=== PATIENT | male | born 1990 | race African-American/Black ===

== ENCOUNTER 2016-11-12 22:48 | Emergency (ER) | payer OTHER ==
[~2016-11-12] VITALS: Ht 172.7 cm; Wt 70.3 kg
[~2016-11-12 22:48] MED LIST: HYDROCHLOROTH12.5 M1 PO; IBUPROFEN 600600 M1 PO; NORVASC5 MG PO; ONDANSETRON HCL4 M2 PO; PRINIVIL10 MG PO; VENTOLIN HFA 1818 GM INH
[2016-11-13] MEDS ORDERED: COMPAZINE10 MG PO (00:52)
[2016-11-13 01:15] VITALS: BP 127/70
== END 2016-11-13 01:33 | disposition home or self-care (01) ==
LOC: ER 22:48
DX: R51 Headache (principal); I10 Essential (primary) hypertension; J45.909 Unspecified asthma, uncomplicated; Z88.8 Allergy status to other drugs, medicaments and biological substances

== ENCOUNTER 2017-01-17 23:21 | Emergency (ER) | payer OTHER ==
[~2017-01-17] VITALS: Ht 170.2 cm; Wt 68.0 kg
--- NOTE | ~2017-01-17 | EKG ---
[place] [address] [facility] [place] [address] ELECTROCARDIOGRAM REPORT [facility]: DEP YAMILET Hunter#: [id number] Admission: 01/17/17 Attend Phys: Discharge: 01/18/17 Date of : 86 Report #: [id number] THIS REPORT FOR: //name// [facility] ED Test Date: 2017-01-17 Test Time: 23:57:51 Pat Name: WOLF DARBY Department: Room: Gender: M [employer]: [id number] : 1990 Requested By: Subhash Carreon Order Number: [id number] MD: Jett Livingston Measurements Intervals [place] Rate: 50 P: 17 NH: 125 QRS: 24 QRSD: 109 T: 33 QT: 422 QTc: 385 Interpretive Statements Sinus rhythm ST elev, probable normal early repol pattern No previous ECG available for comparison Electronically Signed On 01-18-2017 17:13:22 CDT by Jett Livingston [email or web address] <ELECTRONICALLY SIGNED> By: Jett Livingston MD, [facility] 01/18/17 1713 D: [id number] Jett Livingston MD, FACC /EPI
[~2017-01-17 23:21] MED LIST changes: +COMPAZINE10 MG PO
[2017-01-17] MEDS ORDERED: FLUTICASONE PRO16 GM NS (23:25)
[2017-01-18 00:07] LABS: HEMATOCRIT 38.4 % (42.0-52.0); HEMOGLOBIN 13.2 gm/dL (14.0-18.0); MCH 31.8 pg (26.0-34.0); MCHC 34.3 g/dL (28.0-37.0); MCV 92.7 fL (80.0-100.0); RBC 4.14 mil/uL (4.50-6.00); RDW 12.9 % (10.5-14.5); WBC 6.7 thou/uL (4.0-11.0)
[2017-01-18 00:42] LABS: URINE BILIRUBIN NEGATIVE (Negative); URINE BLOOD NEGATIVE (Negative); URINE COLOR YELLOW; URINE GLUCOSE-RANDOM* NEGATIVE (Negative); URINE KETONES NEGATIVE (Negative); URINE LEUKOCYTES-REFLEX NEGATIVE (Negative); URINE PROTEIN (DIPSTICK) NEGATIVE (Negative); URINE SPECIFIC GRAVITY 1.025 (1.003-1.035); URINE UROBILINOGEN 0.2 E.U./dl (0.2-1.0)
[2017-01-18 01:21] LABS: CALCIUM 8.9 mg/dL (8.5-10.1); CREATININE 1.2 mg/dL (0.7-1.3); POTASSIUM 3.9 mmol/L (3.5-5.1)
[2017-01-18 01:24] LABS: ALBUMIN 3.5 g/dL (3.4-5.0)
[2017-01-18 01:28] LABS: TOTAL BILIRUBIN 0.3 mg/dL (<0.1-1.0); TOTAL PROTEIN 6.6 g/dL (6.4-8.2)
[2017-01-18 01:54] VITALS: BP 112/74
== END 2017-01-18 02:01 | disposition home or self-care (01) ==
LOC: ER 23:21
PROVIDERS: Emergency Medicine
DX: R60.0 Localized edema (principal); I10 Essential (primary) hypertension; J45.909 Unspecified asthma, uncomplicated; Z88.8 Allergy status to other drugs, medicaments and biological substances

== ENCOUNTER 2017-02-22 19:18 | Emergency (ER) | payer OTHER ==
[~2017-02-22] VITALS: Ht 172.7 cm; Wt 68.0 kg
[~2017-02-22 19:18] MED LIST changes: +FLUTICASONE PRO16 GM NS
[2017-02-22 20:20] LABS: HEMATOCRIT 42.5 % (42.0-52.0); HEMOGLOBIN 14.4 gm/dL (14.0-18.0); MCH 31.2 pg (26.0-34.0); MCV 91.8 fL (80.0-100.0); RBC 4.63 mil/uL (4.50-6.00); RDW 12.6 % (10.5-14.5); WBC 6.9 thou/uL (4.0-11.0)
[2017-02-22 20:24] LABS: CALCIUM 9.4 mg/dL (8.5-10.1); POTASSIUM 3.5 mmol/L (3.5-5.1)
[2017-02-22] MEDS ORDERED: ONDANSETRON HCL4 M2 PO (21:12)
[2017-02-22 21:44] VITALS: BP 122/80
== END 2017-02-22 21:44 | disposition home or self-care (01) ==
LOC: ER 19:18
PROVIDERS: Emergency Medicine
DX: R11.2 Nausea with vomiting, unspecified (principal); R19.7 Diarrhea, unspecified; I10 Essential (primary) hypertension; J45.909 Unspecified asthma, uncomplicated; F10.99 Alcohol use, unspecified with unspecified alcohol-induced disorder; Z88.8 Allergy status to other drugs, medicaments and biological substances

== ENCOUNTER 2018-11-28 23:50 | Emergency (ER) | payer OTHER ==
[~2018-11-28] VITALS: Ht 167.6 cm; Wt 68.0 kg
[2018-11-29] MEDS ORDERED: POLYMYXIN B/TMP10 ML TOP (01:06)
[2018-11-29 01:24] VITALS: BP 147/98
== END 2018-11-29 01:25 | disposition home or self-care (01) ==
LOC: ER 23:50
DX: H10.9 Unspecified conjunctivitis (principal); I10 Essential (primary) hypertension; J45.909 Unspecified asthma, uncomplicated; Z88.8 Allergy status to other drugs, medicaments and biological substances